=== PATIENT | male | born 1955 | race Caucasian/White ===

== ENCOUNTER 2019-03-10 06:14 | Inpatient (IN) ==
[2019-03-10] MEDS ORDERED: Albuterol 2.5 MG/3 ML NEBULIZER IH PRN (06:54)
[2019-03-10] MEDS ORDERED: CeFAZolin Syr 2,000MG/20 ML 2,000 MG/20 ML SYRINGE IVPB ONE (06:54)
[2019-03-10] MEDS ORDERED: Ringers Solution, Lactated 1,000 ML IVC SCH ×2 (07:00→11:04)
[2019-03-10] MEDS ORDERED: ROPIVACAINE/PF/NS 0.25% 1 EACH SYRINGE INTRAART ONE ×2 (07:15→07:49)
[2019-03-10] MEDS ORDERED: Ropivacaine/PF 0.5% 30 ML VIAL ONE (07:15)
[2019-03-10] MEDS ORDERED: *HR* FentaNYL (PF) 100 MCG/2 ML VIAL ONE (07:18)
[2019-03-10] MEDS ORDERED: *HR* Midazolam HCl 2 MG/2 ML VIAL ONE (07:18)
[2019-03-10] MEDS ORDERED: Ondansetron 4 MG/2 ML VIAL ONE (07:18)
[2019-03-10] MEDS ORDERED: Lidocaine -MPF 2% 2 ML VIAL ONE (07:18)
[2019-03-10] MEDS ORDERED: *HR* Rocuronium Bromide 50 MG/5 ML VIAL ONE ×2 (07:18→09:27)
[2019-03-10] MEDS ORDERED: Dexamethasone 4 MG/ML VIAL ONE (07:18)
[2019-03-10] MEDS ORDERED: *HR* Propofol 200 MG/20 ML VIAL IVP ONE (07:19)
[2019-03-10] MEDS ORDERED: Lidocaine HCL 4 ML Topical Solution (Laryng-O-Jet Kit Sterile Pak) TP ONE (07:20)
[2019-03-10] MEDS ORDERED: Ethanol\\Acetic Acid\\Na Ace\\Ben 1,000 ML IRRIG.SOLN IR ONE (07:43)
[2019-03-10] MEDS ORDERED: Scopolamine Patch 1.5 MG PATCH.TD72 TD ONE (07:44)
[2019-03-10] MEDS ORDERED: Ketorolac 30 MG/ML VIAL IVP ONE ×2 (07:45→10:35)
[2019-03-10] MEDS ORDERED: Ondansetron 4 MG/2 ML VIAL IVP ONE (07:45)
[2019-03-10] MEDS ORDERED: *HR* OxyCODONE Immed Rel 5 MG TABLET PO PRN (07:45)
[2019-03-10] MEDS ORDERED: *HR* Promethazine 25 MG/ML VIAL IVP PRN (07:45)
[2019-03-10] MEDS ORDERED: Lidocaine/EPI 1:100k 1% 20 ML VIAL ONE (08:52)
[2019-03-10] MEDS ORDERED: Acetaminophen IV 1,000 MG/100 ML INFUS..BTL ONE (09:44)
[2019-03-10] MEDS ORDERED: Ondansetron 4 MG/2 ML VIAL IVP PRN (11:04)
[2019-03-10] MEDS ORDERED: Temazepam 15 MG CAPSULE PO PRN (11:04)
[2019-03-10] MEDS ORDERED: *HR* OxyCODONE/APAP 5/325 TABLET PO PRN (11:04)
[2019-03-10] MEDS ORDERED: Sennosides 8.6 MG TABLET PO PRN (11:04)
[2019-03-10] MEDS ORDERED: MOM Conc 10 ML UD.LIQ PO PRN (11:04)
[2019-03-10] MEDS ORDERED: traMADol 50 MG TABLET PO PRN (11:04)
[2019-03-10] MEDS ORDERED: Ketorolac 15 MG/ML VIAL IVP PRN (11:04)
[2019-03-10] MEDS: *HR* Enoxaparin 30 MG/0.3 ML SYRINGE SQ SCH (16:37)
[2019-03-10] MEDS: *HR* OxyCODONE Immed Rel 5 MG TABLET PO PRN (19:22)
[2019-03-10] MEDS: Budesonide/Formoterol 160/4.5 1 PUFF INH IH SCH (19:58)
[2019-03-11 04:40] LABS: Hematocrit 36.6 % (37.5-50.1)
[2019-03-11 04:42] LABS: Hemoglobin 11.7 g/dL (12.9-16.9)
[2019-03-11 05:03] LABS: BUN/Creatinine Ratio 26 (6-26); Blood Urea Nitrogen 25 mg/dL (8-23); Calcium 8.6 mg/dL (8.6-10.3); Carbon Dioxide 27 mEq/L (23-29); Chloride 102 mEq/L (98-107); Glucose 143 mg/dL (70-105); Osmolality,Calculated 291 (280-300); Potassium 4.6 mEq/L (3.5-5.1); Sodium 137 mEq/L (136-145); eGFR For African Americans > 60 (> 60); eGFR For Non-African Americans > 60 (> 60)
[2019-03-11] MEDS: *HR* Enoxaparin 30 MG/0.3 ML SYRINGE SQ SCH (05:18)
[2019-03-11] MEDS: *HR* OxyCODONE Immed Rel 5 MG TABLET PO PRN (05:40)
[2019-03-11 07:27] VITALS: BP 124/79
[2019-03-11] MEDS: Budesonide/Formoterol 160/4.5 1 PUFF INH IH SCH (07:50)
[2019-03-11] MEDS ORDERED: FLU Vac QV 19-20 (6Month+)/PF 0.5 ML SYRINGE IM ONE (08:03)
[2019-03-11] MEDS ORDERED: Metoprolol XL (24 HR) Succ 50 MG TAB.ER.24H PO SCH (09:00)
[2019-03-11] MEDS ORDERED: Aspirin Enteric Coated 81 MG Tablet PO SCH (09:00)
[2019-03-11] MEDS ORDERED: Cholecalciferol (D-3) 1,000 UNIT (25MCG) TABLET PO SCH (09:00)
[2019-03-11] MEDS ORDERED: Tiotropium 18 MCG inhalation IH SCH (10:00)
== END 2019-03-11 10:51 | disposition home or self-care (01) | DRG 483 ==
LOC: SAMDAY 06:14 → 3NENU 11:26
PROVIDERS: ADMIT Orthopaedic Surgery Sports Medicine; ATTEND Orthopaedic Surgery Sports Medicine